=== PATIENT | female | born 1990 | race Caucasian/White ===

== ENCOUNTER 2018-06-12 19:53 | Emergency (ER) | payer SELFPAY ==
[2018-06-12 19:54] VITALS: BP 162/87; PULSE 113; RESP 16; TEMP 36.8; O2SAT 99; BMI 36.6
--- NOTE | 2018-06-12 20:52 | ED.VISSUMM ---
- ER Visit Summary Date of Service: 06/12/18 Chief Complaint: Left ear feels clogged History of Present Illness: The patient is a 28 F presenting feeling like her left ear is clogged. She used Q-tips and eardrops at home. She denies fever. Denies pain. Denies other complaints. Physical Examination: Vitals are stable. Patient is afebrile. Alert no acute distress. HEENT exam fluid behind left TM with no erythema. Right TM is normal. No cerumen. No mastoid tenderness. Pharynx is normal. Neck is supple. Lungs are clear and equal bilaterally. Heart is regular rate and rhythm. Extremities are unremarkable. Skin is warm and dry. No rash No focal neurologic deficit. Remainder of exam is unremarkable. Emergency Department Course and Treatment: Patient is given a prescription for Mucinex D. She is advised to discontinue use of Q-tips in her ears. She is advised to follow-up with her primary care physician. Advised return to ED for worsening complaints. Disposition: Discharge home Impression: Serous otitis This note was generated with [employer] dictation software. It may contain incorrect words, spelling, and punctuation that were not noted in review of the chart prior to signing ED Disposition - Plan for ED Patient: Chief Complaint: Ear Problem Instructions: ED URI Viral Prescriptions: Guaifenesin/Pseudoephedrne HCl [Mucinex D ER 1,200-120 mg Tab] 1 each PO BID #20 [email or web address] Referrals: Angelo Haro MD [Primary Care Provider] -
--- NOTE | 2018-06-12 20:55 | ED.DCSUM_ITS ---
- ER Visit Summary Date of Service: 06/12/18 Chief Complaint: Left ear feels clogged History of Present Illness: The patient is a 28 F presenting feeling like her left ear is clogged. She used Q-tips and eardrops at home. She denies fever. Denies pain. Denies other complaints. Physical Examination: Vitals are stable. Patient is afebrile. Alert no acute distress. HEENT exam fluid behind left TM with no erythema. Right TM is normal. No cerumen. No mastoid tenderness. Pharynx is normal. Neck is supple. Lungs are clear and equal bilaterally. Heart is regular rate and rhythm. Extremities are unremarkable. Skin is warm and dry. No rash No focal neurologic deficit. Remainder of exam is unremarkable. Emergency Department Course and Treatment: Patient is given a prescription for Mucinex D. She is advised to discontinue use of Q-tips in her ears. She is advised to follow-up with her primary care physician. Advised return to ED for worsening complaints. Disposition: Discharge home Impression: Serous otitis This note was generated with [employer] dictation software. It may contain incorrect words, spelling, and punctuation that were not noted in review of the chart prior to signing ED Disposition - Plan for ED Patient: Chief Complaint: Ear Problem Instructions: ED URI Viral Prescriptions: Guaifenesin/Pseudoephedrne HCl [Mucinex D ER 1,200-120 mg Tab] 1 each PO BID #20 tab.[email or web address] Referrals: Angelo Haro MD [Primary Care Provider] -
--- NOTE | 2018-06-12 20:59 | ED.DEP ---
ED Disposition - Plan for ED Patient: Chief Complaint: Ear Problem Instructions: ED Otitis Media Serous Adult Prescriptions: Guaifenesin/Pseudoephedrne HCl [Mucinex D ER 1,200-120 mg Tab] 1 each PO BID #20 tab.er.12h Referrals: Angelo Haro MD [Primary Care Provider] -
[2018-06-12 21:03] VITALS: BP 154/80; PULSE 105; RESP 15; O2SAT 98
== END 2018-06-12 21:10 | disposition home or self-care (01) ==
LOC: ED 20:55
PROVIDERS: Emergency Provider Emergency Medicine; Family Provider Family Medicine; PCP Family Medicine
DX: H65.92 Unspecified nonsuppurative otitis media, left ear (principal); J06.9 Acute upper respiratory infection, unspecified
CPT/HCPCS: 99282